=== PATIENT | male | born 1990 | race Caucasian/White ===

== ENCOUNTER 2017-10-23 07:28 | Inpatient (IN) | payer MEDICAID ==
[2017-10-23] MEDS ORDERED: Sodium Chloride 0.9% 1,000 ML IV ONE (07:43)
[2017-10-23 08:06] LABS: % BASOPHILS 0.1 % (0.0-2.0); % EOSINOPHILS 2.5 % (0.0-5.0); % LYMPHOCYTES 21.2 % (20.0-50.0); % MONOCYTES 5.9 % (2.0-10.0); % NEUTROPHILS 70.3 % (40.0-80.0); EOSINOPHILE ABSOLUTE 0.2 Th/cmm (0.1-0.4); HEMATOCRIT 48.3 % (41.0-60); HEMOGLOBIN 16.4 gm/dL (12-16); LYMPHOCYTE ABSOLUTE 1.6 Th/cmm (1.5-3.0); MEAN CORPUSCULAR HEMOGLOBIN 29.5 pg (26.0-30.0); MEAN CORPUSCULAR HGB CONC 33.9 pg (28.0-36.0); MEAN PLATELET VOLUME 8.2 fl; MONOCYTE ABSOLUTE 0.4 Th/cmm (0.3-1.0); NEUTROPHILE ABSOLUTE 5.2 Th/cmm (1.8-8.0); PLATELET COUNT 331 Th/cmm (150-400); RED BLOOD COUNT 5.56 Mil/cmm (4.30-5.70); RED CELL DISTRIBUTION WIDTH 12.5 % (11.5-20.0); WHITE BLOOD COUNT 7.4 Th/cmm (4.8-10.8)
[2017-10-23 08:24] LABS: ALB/GLOB RATIO 1.9 (1.0-1.8); ALBUMIN 4.5 gm/dL (4.2-5.5); ALKALINE PHOSPHATASE 64 U/L (34-104); AMYLASE SERUM 29 U/L (29-103); ANION GAP 11.8 (7.0-16.0); BILIRUBIN,TOTAL 0.8 mg/dL (0.3-1.0); BUN - UREA NITROGEN 21 mg/dL (7-25); CALCIUM SERUM 9.7 mg/dL (8.6-10.3); CARBON DIOXIDE 25.1 mEq/L (21.0-31.0); CHLORIDE 103 mEq/L (98-107); CREATININE - SERUM 0.9 mg/dL (0.7-1.3); GFR AFRICAN-AMERICAN > 60.0 ml/min (>90); GFR NON AFRICAN-AMERICAN > 60.0 ml/min; GLUCOSE 122 mg/dL (70-105); LIPASE 36 U/L (11-82); POTASSIUM SERUM 3.9 mEq/L (3.5-5.1); SGOT 18 U/L (13-39); SGPT/ALT 21 U/L (7-52); SODIUM SERUM 136 mEq/L (136-145); TOTAL PROTEIN,SERUM 6.9 gm/dL (6.0-8.3)
--- NOTE | 2017-10-23 08:53 | ED Physician Chart ---
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 Allergies:: Allergies Allergy/AdvReac Type Severity Reaction Status Date / Time No Known Allergies Allergy Verified 10/23/17 07:37 Vitals:: Vital Signs - 8 hr 10/23/17 07:37 Temp 99.4 F HR 119 RR 16 BP 134/91 O2 Sat % 97 Historian:: Patient, Family Member Review:: Nurse's Note Reviewed ED Review of Systems - Review of Systems General/Constitutional: No fever, No chills, No weight loss, No weakness, No diaphoresis, No edema, No loss of appetite Skin: No skin lesions, No rash, No bruising Head: No headache, No light-headedness Eyes: No loss of vision, No pain, No diplopia ENT: No earache, No nasal drainage, No sore throat, No tinnitus Neck: No neck pain, No swelling, No thyromegaly, No stiffness, No mass noted Cardio Vascular: No chest pain, No palpitations, No PND, No orthopnea, No edema Pulmonary: No SOB, No cough, No sputum, No wheezing GI: Nausea, Vomiting, Diarrhea, Pain, No melena, No hematochezia, No constipation, No hematemesis G/U: No dysuria, No frequency, No hematuria, No nacturia Musculoskeletal: No bone or joint pain, No back pain, No muscle pain Endocrine: No polyuria, No polydipsia Psychiatric: No prior psych history, No depression, No anxiety, No suicidal ideation, No homicidal ideation, No auditory hallucination, No visual hallucination Hematopoietic: No bruising, No lymphadenopathy Allergic/Immuno: No urticaria, No angioedema Neurological: No syncope, No focal symptoms, No weakness, No paresthesia, No headache, No seizure, No dizziness, No confusion, No vertigo ED Past Medical History - Past Medical History Obtainable: Yes Past Medical History: No significant medical hx Family History: None Social History: Smoker, No Alcohol, Illicit Drug Use, Single Surgical History: None Psychiatricy History: None Medication: Reviewed Family Medical History - Family Member Mother History Unknown: Yes ED Physical Exam - Physical Examination General/Constitutional: Awake, Well-developed, well-nourished, Alert, No distress, GCS 15, Non-toxic appearing, Ambulatory Head: Atraumatic Eyes: Lids, conjuctiva normal, PERRL, EOMI Skin: Nl inspection, No rash, No skin lesions, No ecchymosis, Well hydrated, No lymphadenopathy ENMT: External ears, nose nl, TM canals nl, Nasal exam nl, Lips, teeth, gums nl , Oropharynx nl, Tonsils nl Neck: Nontender, Full ROM w/o pain, No JVD, No nuchal rigidity, No bruit, No mass, No stridor Other Neck comments:: supple; no meningeal signs; no cervical tenderness Respiratory: Nl effort/Exclusion, Clear to Auscultation, No Wheeze/Rhonchi/Rales Cardio Vascular: RRR, No murmur, gallop, rubs, NL S1 S2, Carotid/Femoral/Distal pulses equal bilaterally GI: No organomegaly, No hernia, Normal BS's, Nondistended, No mass/bruits, No McBurney tenderness, Rectum exam nl Other GI comments:: no pulsatile masses; stool is negative for occult blood; good bowel sounds; + RLQ tenderness and rebound : No CVA tenderness, NL external genitalia, No discharge Extremities: No tenderness or effusion, Full ROM, normal strength in all extremities, No edema, Normal digits & nails Neuro/Psych: Alert/oriented, DTR's symmetric, Normal sensory exam, Normal motor strength, Judgement/insight normal, Mood normal, Normal gait, No focal deficits Other Neuro/Psych comments:: no focal signs Misc: Normal back, No paraspinal tenderness ED Labs/Radiology/EKG Results - Lab Results Results: Laboratory Tests 10/23/17 10/23/17 10/23/17 07:55 07:55 07:55 WBC 7.4 RBC 5.56 Hgb 16.4 Hct 48.3 MCV 87.0 MCH 29.5 MCHC Differential 33.9 RDW 12.5 Plt Count 331 MPV 8.2 Neutrophils % 70.3 Lymphocytes % 21.2 Monocytes % 5.9 Eosinophils % 2.5 Basophils % 0.1 Sodium 136 Potassium 3.9 Chloride 103 Carbon Dioxide 25.1 Anion Gap 11.8 BUN 21 Creatinine 0.9 Est GFR ( Amer) > 60.0 Est GFR (Non-Af Amer) > 60.0 BUN/Creatinine Ratio 23.3 Glucose 122 H Calcium 9.7 Total Bilirubin 0.8 AST 18 ALT 21 Alkaline Phosphatase 64 Troponin I < 0.01 L Total Protein 6.9 Albumin 4.5 Globulin 2.4 Albumin/Globulin Ratio 1.9 H Amylase 29 Lipase 36 Comments:: unremarkable except: U/A: + WBCs; + UDS for amphetamines and THC - Radiology Results Comments:: NAD; Appendix not visualized - EKG Interpretations EKG Time:: 08:10 Rate & Rhythm: 90; NSR Comments:: WNL ED Septic Shock - . Is Septic Shock (SBP<90, OR Lactate>4 mmol\L) present?: No - <6hrs of presentation: Vital Signs: Vital Signs - 8 hr 10/23/18 07:37 Temp 99.4 F HR 119 RR 16 BP 134/91 O2 Sat % 97 ED Reassessment (Disposition) - Reassessment Reassessment Condition:: Improved - Diagnosis Diagnosis:: Dx: Abdominal Pain; N/V/D; AGE; Substance Abuse; UTI; R/O: Appendicitis; Gastroenteritis - Aftercare/Follow up Instructions Aftercare/Follow-Up Instructions:: Counseled pt regarding lab results/diagnosis & need follow up, Counseled pt & family regarding lab results/diagnosis & need follow up - Patient Disposition Discharge/Transfer:: Acute Care w/in this hosp Accepting Physician:: Dr. Francis Time Called:: 929 Time Responded:: 09:30 Admitted to:: Med/Surg Spoke to:: Dr. Francis Admitting Medical Physician:: Dr. Francis Condition at Disposition:: Stable, Improved
[2017-10-23 09:03] LABS: URINE MICROSCOPIC INDICATED? YES; URINE SOURCE CLEAN C
[2017-10-23 09:18] LABS: URINE BILIRUBIN NEGATIVE (NEGATIVE); URINE BLOOD NEGATIVE (NEGATIVE); URINE GLUCOSE (UA) NEGATIVE (NEGATIVE); URINE KETONE NEGATIVE (NEGATIVE); URINE LEUKOCYTE ESTERASE NEGATIVE (NEGATIVE); URINE NITRATE NEGATIVE (NEGATIVE); URINE PH 6.5 (4.6 - 8.0); URINE PROTEIN TRACE mg/dL (NEGATIVE)
[2017-10-23 09:22] LABS: URINE CLARITY CLEAR (CLEAR); URINE COLOR YELLOW
[2017-10-23 09:25] LABS: URINE RBC 0-2 /hpf (0-5)
[2017-10-23 09:26] LABS: AMPHETAMINE URINE POSITIVE (NEGATIVE); URINE BACTERIA OCCASIONAL /hpf (NONE SEEN); URINE EPITHELIAL CELLS FEW /lpf (FEW)
[2017-10-23 09:27] LABS: BARBITURATES URINE NEGATIVE (NEGATIVE); BENZODIAZEPINES QUAL URINE NEGATIVE (NEGATIVE); CANNABINOID THC POSITIVE (NEGATIVE); COCAINE METABOLITE QUAL URINE NEGATIVE (NEGATIVE); METHADONE URINE NEGATIVE (NEGATIVE); METHAMPHETAMINES QUAL URINE POSITIVE (NEGATIVE); OPIATES (MORPHINE) QUAL. URINE NEGATIVE (NEGATIVE); PHENCYCLIDINE (PCP) URINE NEGATIVE (NEGATIVE); TRICYCLICS (TCA) QUAL. URINE NEGATIVE (NEGATIVE)
[2017-10-23] MEDS ORDERED: cefTRIAXone 1 GM in Sodium Chloride 0.9% 50 ML IV ONE (10:05)
--- NOTE | 2017-10-23 10:24 | Diagnostic Imaging Report ---
CT abdomen and pelvis without intravenous contrast Indication: Abdominal pain, rule out appendicitis Comparison: None, Technique: Axial images were obtained from the lung bases to the bilateral proximal femurs without IV contrast. Coronal reconstructions were made. total DLP: 507, CTDI9.5 FINDINGS: Hypoventilatory and atelectatic changes of the lungs are noted. Evaluation of the solid organs is limited due to lack of IV contrast. There is focal area of fatty infiltration along the falciform ligament. Otherwise no focal hepatic lesions identified. No focal splenic, pancreatic, or lesions. No evidence of hydronephrosis or focal renal lesions. There is moderate stool throughout the colon. The appendix is not well-visualized and may have been removed. Few borderline prominent right lower quadrant lymph nodes are noted. No free fluid or free air. Nonspecific nondistended fluid-filled loops of small bowel are noted. The osseous structures demonstrate no acute abnormalities. IMPRESSION: The appendix is not well-visualized and may have been removed. Please correlate with patient's clinical history and old exams. Moderate stool throughout the colon. Nondilated fluid-filled loops of small bowel without evidence of bowel obstruction. Borderline prominent right lower quadrant lymph nodes, nonspecific, and may be due to etiologies such as mesenteric adenitis. Small focal area of fatty infiltration of the liver adjacent to falciform ligament.
--- NOTE | 2017-10-23 13:05 | Diagnostic Imaging Report ---
Ultrasound abdomen HISTORY: Right lower quadrant Abdominal pain COMPARISON: CT abdomen and pelvis the same day Technique: Sonography of the abdomen was performed in multiple planes. FINDINGS: Exam is limited due to body habitus. The liver demonstrates mild increased echogenicity with no evidence of focal lesions. The liver measures 16.9 cm. No evidence of gallstones or gallbladder wall thickening. The common bile duct measures 4 mm. Evaluation of the pancreas is limited due to bowel gas. The right kidney measures 11.6 x 5.1 cm. No evidence of focal lesions or hydronephrosis. The left kidney measures 11.6 x 5.3 cm. No evidence of focal lesions or hydronephrosis. The spleen 8.7 cm. IMPRESSION: No evidence of gallstones. No evidence of hydronephrosis. Borderline prominent liver with mild increased echogenicity which may be due to fatty infiltration, please correlate with clinical findings. Please refer to CT abdomen and pelvis the same day for further details.
[2017-10-23] MEDS ORDERED: D5-0.45NS 1,000 ML IV SCH ×2 (15:30→23:00)
[2017-10-23] MEDS ORDERED: Morphine Sulfate 2 mg/mL 1mL Syr IVP PRN (22:49)
== END 2017-10-23 16:30 | disposition left against medical advice (07) | DRG 254 ==
LOC: ER 07:28 → MSI 15:15
PROVIDERS: ADMIT Internal Medicine; ATTEND Internal Medicine
DX: K37 Unspecified appendicitis (principal); F15.10 Other stimulant abuse, uncomplicated; F17.210 Nicotine dependence, cigarettes, uncomplicated; N39.0 Urinary tract infection, site not specified; K52.9 Noninfective gastroenteritis and colitis, unspecified; Z71.89 Other specified counseling; Z53.21 Procedure and treatment not carried out due to patient leaving prior to being seen by health care provider
CPT/HCPCS: 36415-UA; 76700-TC; 80053-TC; 80307; 81001-TC; 82150-TC; 83690-TC; 84484-TC; 85025-TC; 87086-90; 93005; 96375; J0696; J1885; J2405; J2543; J7030